=== PATIENT | female | born 1965 | race Caucasian/White ===

== ENCOUNTER 2019-03-18 09:02 | Day surgery (SDC) | payer BC ==
[2019-03-18] VITALS (9 sets, daily range): BP systolic 139–159; BP diastolic 81–90
[~2019-03-18] VITALS: Ht 167.6 cm; Wt 73.9 kg
[2019-03-18] MEDS ORDERED: diphenhydrAMINE 25mg capsule PO PRN (09:25)
[2019-03-18] MEDS ORDERED: normal saline 1000ml 1,000 ML IV SCH (09:25)
[2019-03-18] MEDS ORDERED: BENA40TA73 PO (09:56)
[2019-03-18] MEDS ORDERED: ASPI81TA52 PO (09:56)
[2019-03-18] MEDS ORDERED: OMEP20CA10 PO (09:56)
[2019-03-18] MEDS ORDERED: DULO60CA45 PO (09:56)
[2019-03-18] MEDS ORDERED: HYDR25TA4 PO (09:56)
[2019-03-18] MEDS ORDERED: HYDR200T80 PO (09:56)
[2019-03-18] MEDS ORDERED: PRED5TAB49 PO (09:56)
[2019-03-18] MEDS ORDERED: DIVA-81 PO ×2 (09:56)
[2019-03-18] MEDS ORDERED: DILT120C94 PO (09:56)
[2019-03-18] MEDS ORDERED: LAMO200T2 PO (09:56)
[2019-03-18] MEDS ORDERED: ALEN70SO3 PO (09:56)
[2019-03-18] MEDS ORDERED: BREX0.25 PO (09:56)
[2019-03-18] MEDS ORDERED: AZAT50TA35 PO (09:56)
[2019-03-18 10:10] LABS: ALBUMIN 3.5 G/DL (3.4-5.0); ANION GAP 8 (8-16); BLOOD UREA NITROGEN 25 MG/DL (7-18); BUN/CREATININE RATIO 22.9 (6.6-38.0); CALCIUM 9.3 MG/DL (8.5-10.1); CHLORIDE 102 MMOL/L (99-107); CREATININE 1.09 MG/DL (0.40-0.90); GLUCOSE 88 MG/DL (70-104); MAGNESIUM 1.5 MG/DL (1.5-2.4); POTASSIUM 4.3 MMOL/L (3.5-5.1); SODIUM 137 MMOL/L (135-145); TOTAL CARBON DIOXIDE 27.2 MMOL/L (24-32); eGFR 53 ML/MIN
[2019-03-18 10:31] LABS: BASOPHILS # (AUTO) 0.1 X10'3 (0-0.2); BASOPHILS % (AUTO) 0.8 % (0-1); EOSINOPHILS # (AUTO) 0.2 X10'3 (0-0.9); EOSINOPHILS % (AUTO) 2.3 % (0-6); HEMATOCRIT 33.4 % (35.0-45.0); HEMOGLOBIN 11.6 g/dl (12.0-16.0); LYMPHOCYTES # (AUTO) 0.6 X10'3 (1.1-4.8); LYMPHOCYTES % (AUTO) 9.2 % (21-51); MEAN CORPUSCULAR HEMOGLOBIN 35.8 PG (27.0-31.0); MEAN CORPUSCULAR HGB CONC 34.7 g/dL (33.0-36.5); MEAN CORPUSCULAR VOLUME 103.1 FL (78-98); MEAN PLATELET VOLUME 9.9 FL (7.4-10.4); MONOCYTES # (AUTO) 0.3 X10'3 (0-0.9); MONOCYTES % (AUTO) 5.1 % (2-12); NEUTROPHILS # (AUTO) 5.4 X10'3 (1.8-7.7); NEUTROPHILS % (AUTO) 82.6 % (42-75); PLATELET COUNT 199 X10'3 (140-440); RED BLOOD COUNT 3.24 X10'6 (4.20-5.60); RED CELL DISTRIBUTION WIDTH 14.7 % (11.5-14.5); WHITE BLOOD COUNT 6.6 X10'3 (4.5-11.0)
[2019-03-18] MEDS ORDERED: fentaNYL/PF 50MCG/1 ML 2ML syringe ONE (10:37)
[2019-03-18] MEDS ORDERED: midazolam 2 mg/2 ml injection ONE (10:37)
[2019-03-18] MEDS ORDERED: iohexol 350MG/ML 100ml bottle IV ONE (10:38)
[2019-03-18] MEDS ORDERED: LIDOcaine 1% (10mg/ml)w/preservative injection 20ml MDV ONE (10:38)
[2019-03-18] MEDS ORDERED: iohexol 350 MG/ML 50ML vial IV ONE (10:38)
[2019-03-18] MEDS ORDERED: adenosine 90 MG/30ml kit =/or below 120kg Cath Lab IV ONE (11:14)
[2019-03-18] MEDS ORDERED: HYDROcodone/acetaminophen 5mg/325mg tablet PO PRN (12:00)
[2019-03-18] MEDS ORDERED: HYDROcodone/acetaminophen 10/325mg tab PO PRN (12:00)
== END 2019-03-18 14:50 | disposition home or self-care (01) ==
LOC: CATH LAB 09:02 → SSTAY O 14:50
PROVIDERS: ATTEND Internal Medicine Cardiovascular Disease
DX: I25.119 Atherosclerotic heart disease of native coronary artery with unspecified angina pectoris (principal); I10 Essential (primary) hypertension; G47.30 Sleep apnea, unspecified; F32.9 Major depressive disorder, single episode, unspecified; M32.10 Systemic lupus erythematosus, organ or system involvement unspecified; G40.909 Epilepsy, unspecified, not intractable, without status epilepticus; M81.8 Other osteoporosis without current pathological fracture; Z96.641 Presence of right artificial hip joint; Z79.899 Other long term (current) drug therapy; Z88.8 Allergy status to other drugs, medicaments and biological substances; Z88.1 Allergy status to other antibiotic agents
CPT/HCPCS: 36415; 80048; 83735; 85025; 85610; 93005; 93458; 93571; 99152; 99153; A6257; C1753; C1769; J0153; J1644; J2001; J2250; J3010; Q0163; Q9967; A4620; C1760; C1894; J7030